=== PATIENT | male | born 2000 | race Caucasian/White ===

== ENCOUNTER 2019-03-10 17:19 | Emergency (ER) | payer OTHER ==
--- NOTE | 2019-03-10 17:27 | ED Physician Documentation ---
PD HPI LOWER EXT INJURY - Stated complaint Stated Complaint: RT ANKLE INJURY - History obtained from History obtained from: Patient - History of Present Illness PD HPI LOW EXT INJURY LOCATION: Right, Ankle Type of injury: Twist Timing - onset: Today (3:30pm) Timing - duration: Hours (2) Timing - details: Abrupt onset Improved by: Immobilization Worsened by: Moving Associated symptoms: Tingling. No: Numbness Recently seen: Not recently seen - Additional information Additional information: This is a 18-year-old who was playing volleyball when up to spike a ball and came down landing on someone's foot inverting the right ankle. He did fall the ground but he said he landed very softly. He heard and felt a pop in the right ankle. He is been able to put weight just straight down on the foot but cannot walk and he has not taken anything for the pain. No prior injury to this ankle. Review of Systems Musculoskeletal: reports: Joint pain, Joint swelling Neurologic: denies: Focal weakness, Numbness, Head injury PD PAST MEDICAL HISTORY - Allergies Allergies/Adverse Reactions: Allergies Allergy/AdvReac Type Severity Reaction Status Date / Time No Known Drug Allergies Allergy Verified 03/10/19 17:36 PD ED PE NORMAL - Vitals Vital signs reviewed: Yes - General General: Alert and oriented X 3, No acute distress, Well developed/nourished - HEENT HEENT: Atraumatic - Respiratory Respiratory: No respiratory distress - Extremities Extremities: Other (There is swelling on the lateral aspect of the right ankle and pain with point tenderness at the lateral malleolus. No by pain over the base of fifth metatarsal or the fibular head. No medial malleolus pain. Sensation is intact to light touch she is able to wiggle his toes and he has a 2+ dorsalis pedis pulse) - Neuro Neuro: Alert and oriented X 3, No motor deficit, No sensory deficit - Psych Psych: Normal mood, Normal affect Results - Vitals Vitals: Vital Signs - 24 hr 03/10/19 17:36 Temperature 36.7 C Heart Rate 93 Respiratory 15 Rate Blood Pressure 140/50 H O2 Saturation 98 Oxygen O2 Source Room air - Rads (name of study) R ankle Radiology: EMP read contemporaneously (neg fracture) PD MEDICAL DECISION MAKING - ED course Complexity details: reviewed results, d/w patient ED course: X-ray results were discussed with the patient. He is placed in an air splint and on crutches. No weightbearing for the next 2 to 3 days. Wear the air splint for 2 weeks. If he still having feelings that it shifting around or painful in 2 weeks he should be reevaluated. Ice and elevate for pain control and jguv-xdn-fogtbaf anti-inflammatories like ibuprofen or Aleve. Departure - Departure Disposition: 01 Home, Self Care Clinical Impression: Sprain of ankle, right Qualifiers: Encounter type: initial encounter Involved ligament of ankle: unspecified ligament Qualified Code(s): S93.401A - Sprain of unspecified ligament of right ankle, initial encounter Condition: Good Instructions: ED Sprain Ankle W X Ray Follow-Up: SANDOR Kent [Provider Group] Comments: Ice and elevate the ankle. Wear the air splint for 2 weeks and use crutches for the next 3 to 4 days to be nonweightbearing. Start passive range of motion exercises immediately. Take ibuprofen or Aleve hnkp-cmk-slmyqhc for pain. If you are unable to bear weight in the next 4 days or if the ankle feels like it is shifting around on you or having significant pain after 2 weeks you should follow-up with a primary care provider for reevaluation.
[2019-03-10 17:38] VITALS: BP 140/50
--- NOTE | 2019-03-10 18:24 | XRAY Report ---
Reason: ankle injury Procedure Date: 03/10/2019 Accession Number: [id number] / [id number] Procedure: XR - Ankle 3 View RT CPT Code: Final Report FULL RESULT: EXAM: RIGHT ANKLE RADIOGRAPHY EXAM DATE: 03/10/2019 05:52 PM. CLINICAL HISTORY: Ankle injury. COMPARISON: None. TECHNIQUE: 3 views. FINDINGS: Bones: Normal. No fractures or bone lesions. Joints: Normal. No effusion. No subluxations. The ankle mortise is normally aligned. Soft Tissues: Lateral soft tissue swelling. IMPRESSION: 1. No fractures. 2. Lateral soft tissue swelling. RADIA
== END 2019-03-10 18:09 | disposition home or self-care (01) ==
LOC: ED 17:19
DX: S93.401A Sprain of unspecified ligament of right ankle, initial encounter (principal); X50.1XXA Overexertion from prolonged static or awkward postures, initial encounter; Y93.68 Activity, volleyball (beach) (court)
CPT/HCPCS: 99282; 99283

== ENCOUNTER 2019-07-01 16:46 | Emergency (ER) | payer OTHER ==
--- NOTE | 2019-07-01 17:08 | ED Physician Documentation ---
History of Present Illness - Stated complaint Stated Complaint: SHORTNESS OF BREATH,R SHOULDER PAIN - Chief complaint Chief Complaint: Resp - History obtained from History obtained from: Patient - History of Present Illness Timing: How many days ago (3) - Additonal information Additional information: 19-year-old male was snowboarding off of a jump when he fell landing directly on the top of his shoulder and fracturing his clavicle he was able to get back up and ski down the rest of the mountain he was treated at the emergency department Omar placed into a sling and had an x-ray of his shoulder. He was diagnosed with a clavicle fracture and he is now having some pain in his chest and the back over some specific ribs. He is having some trouble with deep breathing and with moving. Review of Systems Constitutional: denies: Fever Eyes: denies: Decreased vision Ears: denies: Ear pain Nose: denies: Congestion Throat: denies: Sore throat Cardiac: reports: Chest pain / pressure. denies: Palpitations, Pedal edema, Calf pain Respiratory: denies: Dyspnea, Cough GI: denies: Abdominal Pain, Nausea, Vomiting : denies: Dysuria Musculoskeletal: reports: Back pain, Extremity pain. denies: Neck pain Neurologic: denies: Generalized weakness, Focal weakness, Numbness PD PAST MEDICAL HISTORY - Past Medical History Past Medical History: No - Present Medications Home Medications: Ambulatory Orders Medication Instructions Recorded Confirmed No Known Home Medications 07/01/19 07/01/19 - Allergies Allergies/Adverse Reactions: Allergies Allergy/AdvReac Type Severity Reaction Status Date / Time No Known Drug Allergies Allergy Verified 07/01/19 16:52 - Social History Does the pt smoke?: No Smoking Status: Never smoker PD ED PE NORMAL - Vitals Vital signs reviewed: Yes (hypertensive) - General General: Alert and oriented X 3, No acute distress, Well developed/nourished - HEENT HEENT: Atraumatic, PERRL, EOMI - Neck Neck: Supple, no meningeal sign, No bony TTP - Cardiac Cardiac: RRR, No murmur - Respiratory Respiratory: No respiratory distress, Other (diminished breath sounds on the right with specific point tenderness to the lower lateral ribs on the right. ) - Abdomen Abdomen: Soft, Non tender - Back Back: No CVA TTP, No spinal TTP - Derm Derm: Normal color, Warm and dry, No rash - Extremities Extremities: No deformity, No edema, No calf tenderness / cord, Other (There is deformity of the midshaft of the right clavicle consistent with acute fracture and there is settling of the right shoulder.Distal neurovascular components are intact) - Neuro Neuro: Alert and oriented X 3, bar roller 2-12 intact, No motor deficit, No sensory deficit, Normal speech Eye Opening: Spontaneous Motor: Obeys Commands Verbal: Oriented GCS Score: 15 - Psych Psych: Normal mood, Normal affect Results - Vitals Vitals: Vital Signs - 24 hr 07/01/19 16:48 Temperature 37 C Heart Rate 63 Respiratory 22 Rate Blood Pressure 136/79 H O2 Saturation 99 Oxygen O2 Source Room air - Rads (name of study) antonino LOREDO chest Radiology: Prelim report reviewed (Impression: Acute displaced fracture of the right mid clavicle with apically oriented angulation between fracture fragments located yes this is a document), EMP read indepedently, See rad report PD MEDICAL DECISION MAKING - ED course Complexity details: reviewed results, re-evaluated patient, considered differential, d/w patient ED course: 19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 He came to the emergency department for that reason and we were able to obtain an x-ray of his chest and ribs on that side and we found no significant abnormality and the patient had no specific symptoms while he was in the emergency department with the exception of pain in his right clavicle. We did try a rcckhe-tm-srevm clavicle strap for comfort and this did not seem to be any more comfortable than the sling for the patient. He will try this at home when he feels like he wants to use his arm more. He declined a narcotic medication prescription. Departure - Departure Disposition: 01 Home, Self Care Clinical Impression: Closed right clavicular fracture Qualifiers: Encounter type: initial encounter Clavicle location: shaft Fracture alignment: displaced Qualified Code(s): S42.021A - Displaced fracture of shaft of right clavicle, initial encounter for closed fracture Condition: Stable Instructions: ED Fx Clavicle Follow-Up: SANDOR Kent [Provider Group]
--- NOTE | 2019-07-01 18:20 | XRAY Report ---
Reason: fall snowboarding clavicle fx, now rib pain Procedure Date: 07/01/2019 Accession Number: [id number] / [id number] Procedure: XR - Ribs w/PA Chest RT CPT Code: Final Report FULL RESULT: EXAM: RIGHT RIB RADIOGRAPHY EXAM DATE: 07/01/2019 05:50 PM. CLINICAL HISTORY: Fall snowboarding clavicle fx, now rib pain. COMPARISON: None. TECHNIQUE: 1 view of the chest and 2 views of the ribs. FINDINGS: Bones: Acute displaced fracture of right mid clavicle with apically oriented angulation between fracture fragments. Lungs: No focal opacities. No pneumothorax. No pleural effusions. Mediastinum: Heart and mediastinal contours are unremarkable. Other: None. IMPRESSION: Acute displaced fracture of right mid clavicle with apically oriented angulation between fracture fragments. RADIA
[2019-07-01 18:52] VITALS: BP 136/66
== END 2019-07-01 18:56 | disposition home or self-care (01) ==
LOC: ED 16:46
DX: S42.021A Displaced fracture of shaft of right clavicle, initial encounter for closed fracture (principal); W19.XXXA Unspecified fall, initial encounter; Y93.23 Activity, snow (alpine) (downhill) skiing, snowboarding, sledding, tobogganing and snow tubing; Y99.8 Other external cause status
CPT/HCPCS: 99283; 99284

== ENCOUNTER 2019-07-09 10:53 | Day surgery (SDC) | payer OTHER ==
[2019-07-09] MEDS ORDERED: cefTRIAXone 2 GM VIAL ONE (11:02)
[2019-07-09] MEDS ORDERED: LACTATED RINGERS 1,000 ML IV ONE ×2 (11:22→13:19)
--- NOTE | 2019-07-09 11:23 | ANESTHESIA ---
Pre-Anesthesia VS, & Labs - Diagnosis right clavicle fracture - Procedure ORIF right clavicle fracture Vital Signs: Temp Pulse Resp BP Pulse Ox 37 C 68 16 120/66 100 07/09/19 11:15 07/09/19 11:15 07/09/19 11:15 07/09/19 11:15 07/09/19 11:15 Height 6 ft 2 in Weight (kg) 81.65 kg Body Mass Index 23.1 - NPO >8 hours Home Medications and Allergies No Known Home Medications 07/01/19 Allergies/Adverse Reactions: Allergies Allergy/AdvReac Type Severity Reaction Status Date / Time No Known Drug Allergies Allergy Verified 07/08/19 10:40 Anes History & Medical History - Anesthetic History Anesthesia Complications: reports: No previous complications Family history of Anesthesia Complications: Denies Family history of Malignant Hyperthermia: Denies - Medical History Cardiovascular: reports: None Pulmonary: reports: None Gastrointestinal: reports: None Urinary: reports: None Musculoskeletal: reports: Other Endocrine/Autoimmune: reports: None Skin: reports: None Smoking Status: Never smoker Exam General: Alert Dental: WNL Mouth Opening: Greater than 4 Fingerbreadths Neck Mobility: Normal Mallampati classification: I Thyromental Distance: greater than 6 cm Respiratory: Lungs clear Cardiovascular: Regular rate, Normal S1, Normal S2 Mental/Cognitive Status: Alert/Oriented X3 Plan Anesthesia Type: General, Interscalene Block, Other (cervical plexus block) Consent for Procedure(s) Verified and Reviewed: Yes Code Status: Attempt Resuscitation ASA classification: 1-Healthy patient Is this case an emergency?: No
[2019-07-09] MEDS ORDERED: PROPOFOL 200 MG/20 ML VIAL IVP ONE (12:45)
[2019-07-09] MEDS ORDERED: ACETAMINOPHEN 1,000 MG/100 ML 100 ML IV ONE (12:45)
[2019-07-09] MEDS ORDERED: ONDANSETRON 4 MG/2 ML VIAL IVP ONE (12:45)
[2019-07-09] MEDS ORDERED: MIDAZOLAM 2 MG/2 ML VIAL IVP ONE (12:45)
[2019-07-09] MEDS ORDERED: LIDOCAINE-MPF 2% 5 ML VIAL IM ONE (12:45)
[2019-07-09] MEDS ORDERED: ROCURONIUM 50 MG/5 ML VIAL IVP ONE (12:45)
[2019-07-09] MEDS ORDERED: fentaNYL 100 MCG/2 ML VIAL IVP ONE (12:45)
[2019-07-09] MEDS ORDERED: ePHEDrine 50 MG/ML VIAL IVP ONE (12:45)
[2019-07-09] MEDS ORDERED: DEXAMETHASONE 4 MG/ML VIAL IVP ONE (12:45)
[2019-07-09] MEDS ORDERED: KETOROLAC 30 MG/ML VIAL IVP ONE (12:45)
[2019-07-09] MEDS ORDERED: BUPIVACAINE 0.25% PF 30 ML VIAL SUBQ ONE (14:47)
[2019-07-09] MEDS ORDERED: oxyCODONE 5 MG TABLET PO PRN (15:01)
[2019-07-09] MEDS ORDERED: ONDANSETRON 4 MG/2 ML VIAL IVP PRN (15:01)
--- NOTE | 2019-07-09 15:10 | OPERATIVE REPORT ---
Operative Report - Other Other Information/Narrative: Date of Surgery: 09 July 2019 Pre-Op Diagnosis: Right midshaft clavicle fracture Procedure: Open reduction internal fixation right midshaft clavicle fracture Postop Diagnosis: Same Primary Surgeon: Meño Coyne Secondary Surgeon: None Complications: None EBL: 50 cc Implants: Arthrex 8 hole superior plate with 7 screws Postoperative Protocol: 0-2 weeks-Sling at all times. Pendulum exercises 5 times per day. xrays @ 2 weeks 2-6 weeks-Passive range of motion in all planes 6-12 weeks-Active range of motion in all planes 12 weeks and beyond-Increase strengthening and dynamic activities Indication For Surgery: 19-year-old male sustained a right clavicle shaft fracture on June while snowboarding. He was seen in the emergency room and placed into a sling. There is a normal neurovascular examination. We discussed the risks of surgery and initially made the decision to move forward with nonoperative treatment but after further reflection he decided that he would did not want to cope with a potentially symptomatic malunion and he opted for surgery. The risks, benefits, and alternatives were discussed. Risks include pain, bleeding, infection, damage to nearby structures, numbness, lack of symptom relief, implant complications, nonunion, need for further surgery, DVT, PE, stroke, and . Written consent was obtained. Procedure in Detail: The patient was met in the preoperative holding on the day of the procedure. Operative extremity was signed. Consent was verified. They desired to proceed. Regional anesthesia was obtained in the preoperative area. They were brought to the operating room and surrendered to anesthesia. Once general anesthesia was obtained they were placed in a very lazy beach chair position. A surgical timeout was held to confirm the patient procedure, identity, procedure, laterality, allergies, images, and antibiotics. All were in agreement we proceeded. A 10 cm incision was made anterior to the clavicle and electrocautery was used to obtain hemostasis. Blunt dissection was used in the platysmal layer and 3 nerves were identified and protected throughout the case. Once through the platysmal layer I tunneled superiorly until on the superior surface of the clavicle and the fascia was opened longitudinally. I bluntly the muscular and tendinous tissue from off the clavicle to allow for mobilization and adequate closure. The fracture was identified and there was an intact inferior periosteal layer. This was left intact and the superior portion of the fracture was opened and cleaned of all blocks to reduction. Direct pressure was then used to reduce the fracture and a bdtdb-bo-hweuv reduction clamp was applied. An 8 hole plate was placed over the fracture and secured with 1 medial screw. I then clamped the plate to the lateral fragment and found this to hold the reduction nicely. Due to the fracture alignment I had created a crotch for compression into. There was a slight amount of rotational malformation but this was accepted due to the fact that correcting this would have involved taking down the inferior periosteal layer. I then placed a lateral screw in compression mode and this compressed the fracture nicely. A lag screw was placed through the plate perpendicular to the fracture line and this compressed the fracture nicely as well. Additional screws were applied. I took care to not plunge when drilling down through the inferior cortex of the clavicle. Fluoroscopy was used to confirm implant positions. Satisfied with this I irrigated copiously and performed the fascial closure using 0 Vicryl in the deltotrapezial layer and obtaining full-thickness muscle flaps. Platysmal layer was closed with 2-0 Vicryl. The skin incision was closed with 2-0 Vicryl in the dermis and a running 3-0 Monocryl in the skin. Mastisol and Steri-Strips were applied. A sterile dressing and a sling was applied. The patient was awakened and transferred to the recovery room.
[2019-07-09 16:13] VITALS: BP 115/62
--- NOTE | 2019-07-10 09:02 | XRAY Report ---
Reason: FX LEFT CLAVICLE Procedure Date: 07/09/2019 Accession Number: [id number] / [id number] Procedure: FL - OR C-Arm Procedure CPT Code: Final Report FULL RESULT: EXAM: FLUOROSCOPIC GUIDANCE EXAM DATE: 07/09/2019 05:32 PM. CLINICAL HISTORY: Fracture left clavicle. COMPARISON: None. FINDINGS: Left clavicle fracture operative fixation with plate and screw construct is seen on 3 fluoroscopic capture images in multiple projections, expected appearance. IMPRESSION: Fluoroscopic guidance provided for operative fixation of left clavicle fracture. Total fluoroscopy time: 3 seconds. Number of images: 3. RADIA
== END 2019-07-09 10:54 | disposition home or self-care (01) ==
LOC: SDS 10:53
PROVIDERS: ATTEND Orthopaedic Surgery
DX: S42.021A Displaced fracture of shaft of right clavicle, initial encounter for closed fracture (principal)

== ENCOUNTER 2022-02-22 17:32 | Emergency (ER) | payer OTHER ==
[2022-02-22] MEDS ORDERED: KETOROLAC 30 MG/ML VIAL IM STA (17:45)
--- NOTE | 2022-02-22 17:45 | ED Physician Documentation ---
PD HPI BACK PAIN - Stated complaint Stated Complaint: BACK INJURY - History obtained from History obtained from: Patient, EMS - History of Present Illness Timing - onset: How many hours ago (1), Today Timing - duration: Hours (1) Timing - details: Abrupt onset (He was doing squat lifts with 290 pounds and felt an abrupt onset of pop and pain in his lumbar area on the way back up from the squat. No radiation of the pain into the legs and no numbness tingling or weakness. No incontinence. Significant pain however with attempted range of motion.), Still present Location: Lower (lumbar area) Quality: Pain, Spasm, Sharp Associated symptoms: No: Weakness, Numbness, Incontinent of urine Improves with: Other (holding still has less pain) Worsened by: Movement, Palpation Contributing factors: Lifting Similar symptoms before: Has not had sx before Recently seen: Not recently seen Review of Systems Constitutional: denies: Fever, Chills Nose: denies: Rhinorrhea / runny nose, Congestion Throat: denies: Sore throat Cardiac: denies: Chest pain / pressure Respiratory: denies: Cough GI: denies: Abdominal Pain, Nausea, Vomiting : denies: Incontinent Skin: denies: Rash, Lesions Neurologic: denies: Focal weakness, Numbness PD PAST MEDICAL HISTORY - Past Medical History Cardiovascular: None Respiratory: None Endocrine/Autoimmune: None GI: None : None HEENT: None Psych: None Musculoskeletal: Other Derm: None - Past Surgical History Past Surgical History: No - Present Medications Home Medications: Ambulatory Orders Medication Instructions Recorded Confirmed Cyclobenzaprine [Flexeril] 10 mg PO TID PRN #20 tablet 02/22/22 Oxycodone HCl/Acetaminophen 1 - 2 each PO Q6H PRN #14 tablet 02/22/22 [Percocet 5-325 mg Tablet] predniSONE [Deltasone] 20 mg PO [id number] #21 tab 02/22/22 - Allergies Allergies/Adverse Reactions: Allergies Allergy/AdvReac Type Severity Reaction Status Date / Time No Known Drug Allergies Allergy Verified 07/08/19 10:40 - Social History Does the pt smoke?: No Smoking Status: Never smoker Does the pt drink ETOH?: No Does the pt have substance abuse?: No - Immunizations Immunizations are current?: Yes PD ED PE NORMAL - Vitals Vital signs reviewed: Yes - General General: Alert and oriented X 3, Well developed/nourished, Other (On backboard by EMS which is most comfortable for him.) - Cardiac Cardiac: RRR, No murmur - Respiratory Respiratory: Clear bilaterally - Abdomen Abdomen: Soft, Non tender - Male Male : Other (Normal sensation in the inguinal and gluteal areas.) - Back Back: Other (Tender in the mid lumbar area and also in the paralumbar muscles.) - Derm Derm: Normal color, Warm and dry - Extremities Extremities: No tenderness to palpate - Neuro Neuro: Alert and oriented X 3, No motor deficit, No sensory deficit (Tested for touch and pinprick in dermatomal distributions. Normal.) Results - Vitals Vitals: Vital Signs - 24 hr 02/22/22 02/22/22 02/22/22 17:39 19:30 20:51 Temperature 37.2 C 37.2 C Heart Rate 61 99 96 Respiratory 18 16 16 Rate Blood Pressure 164/84 H 152/75 H 159/84 H O2 Saturation 99 100 100 Oxygen O2 Source Room air - Rads (name of study) lumbar CT Radiology: Prelim report reviewed, See rad report PD MEDICAL DECISION MAKING - ED course Complexity details: reviewed results, considered differential (Patient doing heavy lifting of 290 pounds and is squat weight lifting. Abrupt pop and pain in the lumbar area without neurologic symptoms. Consider compression fracture versus herniated disc versus ligament tears. Will get CT scan.), d/w patient Departure - Departure Disposition: 01 Home, Self Care Clinical Impression: Herniation of intervertebral disc between L5 and S1 Acute lumbar back pain Qualifiers: Back pain laterality: midline Sciatica presence: without sciatica Qualified Code(s): M54.50 - Low back pain, unspecified Condition: Stable Record reviewed to determine appropriate education?: Yes Instructions: ED Low Back Pain Injury Prescriptions: predniSONE [Deltasone] 20 mg PO [id number] #21 tab Cyclobenzaprine [Flexeril] 10 mg PO TID PRN #20 tablet PRN Reason: Spasms Oxycodone HCl/Acetaminophen [Percocet 5-325 mg Tablet] 1 - 2 each PO Q6H PRN #14 tablet PRN Reason: pain Comments: I sent your prescriptions electronically to the [facility] [place] Follow-up with your flight surgeon in the next few days, consider referral for physical therapy. Return for new or worsening symptoms. I am prescribing a short course of narcotic pain medication for you. These are potentially dangerous and addictive medications that should be used carefully. These medications may constipate you. Take an qehi-wne-ctouxla stool softener (docusate) twice daily with plenty of water while taking these medications. If you go 24 hours without a bowel movement, take lbuy-ham-wrfycgu miralax, per package instructions. Do not drink or drive while taking these medications. If you received narcotic or sedating medications while in the emergency department, do not drive for 24 hours. Store this medication in a safe, secure place and out of reach of children. It is a violation of federal law to give or sell this medication to another person or to use in a manner other than prescribed. The ED will not refill narcotic prescriptions, including prescriptions lost or stolen. To dispose of unwanted medications: 1. [facility] at [address] in [place] has a medication drop box. They accept prescription medications (in pill form) Monday through Monday 9:00 a.m. to 5:00 p.m. 2. The [facility] accepts prescription medications (in pill form only) for disposal year round. Call for more information. 3. Contact the [facility] for the next [facility] sponsored prescription drug collection event. , [phone], or [phone]; Note that many narcotic pain relievers also contain Tylenol/acetaminophen. Please ensure that your total dose of acetaminophen from all sources does not exceed 3 g (3000 mg) per day. Forms: Activity restrictions Discharge Date/Time: 02/22/22 21:15
[2022-02-22] MEDS ORDERED: HYDROmorphone 1 MG/ML CARPUJECT IM STA ×2 (17:46→20:06)
[2022-02-22] MEDS ORDERED: methocarbamoL 500 MG TABLET PO STA (17:46)
--- NOTE | 2022-02-22 18:43 | CT Report ---
PROCEDURE: LUMBAR SPINE WO INDICATIONS: abrupt lumbar pain with heavy weight lifting TECHNIQUE: Noncontrast 3 mm thick sections acquired from the T12 level to the sacrum. Sagittal and coronal refo rmats were constructed. For radiation dose reduction, the following was used: automated exposure co ntrol, adjustment of mA and/or kV according to patient size. COMPARISON: None. FINDINGS: Image quality: Excellent. Bones: There is mild straightening of normal lumbar lordosis. No spondylolisthesis. No acute vertebr al body compression fractures. No suspicious lytic or blastic bony lesions. Central spinal caliber is of normal overall caliber. No pars defects. T12-L1: Normal in appearance. L1-L2: Normal in appearance. L2-L3: Normal in appearance. L3-L4: Normal in appearance. L4-L5: There is mild diffuse disc bulge. No significant canal stenosis. Mild bilateral neural lee inal narrowing is seen. L5-S1: There is diffuse, more right-sided disc herniation extending to right lateral recess causing mild central canal stenosis and moderate right-sided neural foraminal narrowing. Mild left-sided paulo ral foraminal narrowing is also likely present. Soft tissues: No retroperitoneal masses or hematomas. Visualized aorta is normal in caliber. IMPRESSION: 1. Diffuse, more right-sided disc herniation at L5-S1 level causing mild central canal stenosis and m oderate right-sided neural foraminal narrowing. Mild left-sided neural foraminal narrowing also seen at this level. 2. Mild diffuse disc bulge at L4-5 level with mild bilateral neural foraminal narrowing. No significa nt canal stenosis. 3. No compression fracture or spondylolisthesis. No gross paraspinous soft tissue abnormalities. Reviewed by: Sunny Soto MD on 02/22/2022 6:42 PM PDT Approved by: Sunny Soto MD on 02/22/2022 6:42 PM PDT Station ID: [id number]
--- NOTE | 2022-02-22 19:27 | ED Physician Documentation ---
ED Addendum - Addendum Addendum: 02/22/22 19:[address] Ballesteros at shift change. 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 Now with worse pain in the same spot without neurologic symptoms or signs. CT was pending on shift change and is now complete showing: IMPRESSION: 1. Diffuse, more right-sided disc herniation at L5-S1 level causing mild central canal stenosis and moderate right-sided neural foraminal narrowing. Mild left-sided neural foraminal narrowing also seen at this level. 2. Mild diffuse disc bulge at L4-5 level with mild bilateral neural foraminal narrowing. No significant canal stenosis. 3. No compression fracture or spondylolisthesis. No gross paraspinous soft tissue abnormalities. 02/22/22 20:50 After the initial medications was Dr. Ballesteros had ordered which included methocarbamol, and 1 mg of IM Dilaudid and 30 mg of IM Toradol he was only minimally improved. This was followed by 2 mg of IM Toradol Dilaudid after which point he was ambulatory but still a lot of pain. He was administered a walker. Disposition: Discharged home Condition: Stable Diagnosis 1. L5-S1 disc herniation
[2022-02-22] MEDS ORDERED: CHERRY SYRUP 10 ML UDC PO ONE (20:06)
[2022-02-22] MEDS ORDERED: DEXAMETHASONE 10 MG/ML VIAL PO STA (20:06)
[2022-02-22] MEDS ORDERED: oxyCODONE/ACET 5/325 Prepack 4 PO STA (20:50)
[2022-02-22 20:52] VITALS: BP 159/84
== END 2022-02-22 21:15 | disposition home or self-care (01) ==
LOC: EDUNIT# → ED 17:32
DX: M51.27 Other intervertebral disc displacement, lumbosacral region (principal); X50.0XXA Overexertion from strenuous movement or load, initial encounter; Y93.B3 Activity, free weights
CPT/HCPCS: 72131; 96372; 99284; A9270; J1170